=== PATIENT | male | born 1960 | race American Indian/Alaskan Native ===

== ENCOUNTER 2018-09-23 09:44 | Inpatient (IN) ==
[2018-09-15 12:45] LABS: Appearance,Urine CLEAR; Bilirubin,Urine NEG (NEG); Color,Urine YELLOW; Glucose,Urine (UA) NEGATIVE (NEG); Leukocyte Esterase,Urine NEG /uL (NEG); Protein,Urine NEG (NEG); Specific Gravity,Urine 1.017 (1.000-1.035); Urine Blood NEG mg/dL (<0.03); Urobilinogen,Urine NEG (NEG)
[2018-09-15 12:48] LABS: Basophils # (Auto) 0 K/mcL (0.0-0.3); Basophils % (Auto) 0.4 % (0.0-2.0); Eosinophils # (Auto) 0.1 K/mcL (0.0-0.7); Eosinophils % (Auto) 0.9 % (0.0-7.0); Granulocytes % (Auto) 71.9 % (38.0-78.0); Lymphocytes # (Auto) 1.5 K/mcL (1.5-4.8); Lymphocytes % (Auto) 18.2 % (15.5-49.0); Mean Cell Volume 97.8 fL (80.0-100.0); Mean Corpuscular HGB Conc 33.8 g/dL (31.0-36.0); Mean Corpuscular Hemoglobin 33.1 pg (26.0-34.0); Monocytes # (Auto) 0.7 K/mcL (0.1-0.9); Monocytes % (Auto) 8.6 % (1.0-12.0); Platelet Count 258 K/mcL (140-440); RBC 5.16 M/mcL (4.50-5.90); Red Cell Distribution Width 13.5 % (11.5-14.5)
[2018-09-15 13:04] LABS: Estimated Average Glucose(eAG) 117 mg/dL; Hemoglobin A1C 5.7 % HGB (4.0-6.0)
[2018-09-15 13:17] LABS: Blood Urea Nitrogen 11 mg/dl (6-20)
[~2018-09-23 09:44] MED LIST: CELECOXIB 200 MG CAPSULE PO SCH; PREGABALIN 75 MG CAPSULE PO SCH; ceFAZolin 1 GM VIAL IV SCH; oxyCODONE 10 MG TAB.ER.12H PO SCH
[2018-09-23] MEDS ORDERED: ONDANSETRON 4 MG/2 ML VIAL IV ONE (13:25)
[2018-09-23] MEDS ORDERED: GLYCOPYRROLATE 0.2 MG/ML VIAL IV ONE (13:25)
[2018-09-23] MEDS ORDERED: PHENYLEPHRINE 10 MG/ML VIAL IV ONE (13:25)
[2018-09-23] MEDS ORDERED: DEXAMETHASONE 10 MG/ML VIAL IV ONE (13:25)
[2018-09-23] MEDS ORDERED: LIDOCAINE HCL/PF 100 MG/5 ML SYRINGE IV ONE (13:25)
[2018-09-23] MEDS ORDERED: PROPOFOL 200 MG/20 ML VIAL IV ONE (13:25)
[2018-09-23] MEDS ORDERED: MIDAZOLAM 5 MG/5 ML VIAL IV ONE (13:25)
[2018-09-23] MEDS ORDERED: TRANEXAMIC ACID 1,000 MG/10 ML VIAL IV ONE (13:25)
[2018-09-23] MEDS ORDERED: KETAMINE 100 MG/ML ML IV ONE (13:25)
[2018-09-23] MEDS ORDERED: HEPARIN 20,000 UNIT/ML VIAL IR ONE (14:20)
[2018-09-23] MEDS ORDERED: BISACODYL 10 MG SUPP.RECT PR PRN (15:03)
[2018-09-23] MEDS ORDERED: FLEETS ADULT ENEMA PR PRN (15:03)
[2018-09-23] MEDS ORDERED: MAGNESIUM HYDROXIDE 30 ML ORAL.SUSP PO PRN (15:03)
[2018-09-23] MEDS ORDERED: POLYETHYLENE GLYCOL 3350 17 GM PACKET PO PRN (15:03)
[2018-09-23] MEDS ORDERED: KETOROLAC 30 MG/ML VIAL IV PRN ×2 (15:03→15:23)
[2018-09-23] MEDS ORDERED: BENZOCAINE/MENTHOL 1 LOZENGE PO PRN ×2 (15:03→15:23)
[2018-09-23] MEDS ORDERED: ONDANSETRON 4 MG/2 ML VIAL IV PRN ×2 (15:03→15:23)
[2018-09-23] MEDS ORDERED: TRANEXAMIC ACID 1,000 MG/10 ML VIAL IV SCH (15:03)
[2018-09-23] MEDS ORDERED: HYDROmorphone 2 MG/ML VIAL IV PRN ×2 (15:03→15:23)
--- NOTE | 2018-09-23 15:03 | Brief Operative Note ---
Date of procedure: 09/23/18 Pre-op diagnosis: Left hip severe DJD Post-op diagnosis: same Procedure: Left anterior total hip arthroplasty Grafts/Implants: Yes (Depuy Actis 6 HO stem, +1.5 36mm delta head, 56 cup, neutral altrx liner) Anesthesia: spinal, GLMA Findings: arthritis Complications: none Surgeon: Jared Ramos Lump Machine Operator: Alexander Valdes Estimated blood loss (cc): 500 Specimens Removed/Pathology: none sent Condition: stable Disposition: PACU
[2018-09-23] MEDS ORDERED: LACTATED RINGERS 250 ML IV PRN (15:23)
[2018-09-23] MEDS ORDERED: fentaNYL 100 MCG/2 ML VIAL IV PRN (15:23)
[2018-09-23] MEDS ORDERED: FLUMAZENIL 0.1 MG/ML ML IV PRN (15:23)
[2018-09-23] MEDS ORDERED: ACETAMINOPHEN 1,000 MG/100 ML BOTTLE IV ONE (15:23)
[2018-09-23] MEDS ORDERED: NALOXONE HCL 0.4 MG/ML VIAL IV PRN (15:23)
[2018-09-23] MEDS ORDERED: METHOCARBAMOL 1,000 MG/10 ML VIAL IV PRN (15:23)
[2018-09-23] MEDS ORDERED: IPRATROPIUM/ALBUTEROL 3 ML AMPUL.NEB NEB PRN (15:23)
[2018-09-23] MEDS ORDERED: MEPERIDINE 25 MG/ML SYRINGE IV PRN (15:23)
[2018-09-23] MEDS ORDERED: LACTATED RINGERS 1,000 ML IV SCH (15:30)
--- NOTE | 2018-09-23 17:59 | XRay Report ---
CLINICAL INFORMATION: INTRA OP LEFT TOTAL HIP ARTHROPLASTY COMPARISON: None. FINDINGS: Digital images from the OR are submitted. Final images shows left total hip prostheses in anatomic position. No osseous abnormality. Soft tissue swelling seen as expected IMPRESSION: Negative Interpreted and Authenticated by: Dayne Marques 09/23/18
--- NOTE | 2018-09-23 19:31 | XRay Report ---
CLINICAL INFORMATION: post-op [facility]Z COMPARISON: None. FINDINGS: A total hip prosthesis is in near-anatomic alignment. No osseous normality. Soft tissues are within the surgical site. IMPRESSION: Negative Interpreted and Authenticated by: Dayne Marques 09/23/18
[2018-09-23] MEDS: 0.9 % SODIUM CHLORIDE 1,000 ML IV SCH (20:42)
[2018-09-23] MEDS ORDERED: ATORVASTATIN 20 MG TABLET PO SCH (21:00)
[2018-09-23] MEDS ORDERED: SENNOSIDES 1 TABLET PO SCH (21:00)
[2018-09-23] MEDS: ceFAZolin 1 GM VIAL IV SCH (21:02)
[2018-09-23] MEDS: DOCUSATE SODIUM 100 MG CAPSULE PO SCH (21:03)
[2018-09-23] MEDS: ASPIRIN 325 MG ENTERIC COATED TABLET PO SCH (21:03)
[2018-09-23] MEDS: 0.9 % SODIUM CHLORIDE 10 ML SYRINGE IV SCH (21:04)
[2018-09-23] MEDS: HYDROcodone/APAP 10/325MG TABLET PO PRN (21:04)
[2018-09-24] MEDS: HYDROcodone/APAP 10/325MG TABLET PO PRN ×3 (01:58→10:43)
[2018-09-24] MEDS: ceFAZolin 1 GM VIAL IV SCH (04:39)
[2018-09-24] MEDS: 0.9 % SODIUM CHLORIDE 1,000 ML IV SCH ×2 (04:42→08:21)
[2018-09-24] MEDS: 0.9 % SODIUM CHLORIDE 10 ML SYRINGE IV SCH (04:42)
--- NOTE | 2018-09-24 08:14 | Discharge Summary ---
Providers - Providers Patient information: Note initiated : 09/24/18 at 8:12 am Service Date, if different from initiated Date: [] Patient: Iain Gallegos 58 y/o M admitted on 09/23/18 for Left Total Hip Arthroplasty. Chief Complaint: [] Discharge date: 09/24/18 Hospitalization Hospital course: Pt was admitted for a R [facility]ZEGORZ. Pt underwent the procedure on the day of admission. Pt spent one night on the floor prior to discharge for IV pain meds, IV abx, and PT. Pt will attend out-pt PT and f/u at [facility] in 2 weeks. Discharge diagnosis: L hip OA Exam - Exam Clean and dry: Yes Weight bearing status: as tolerated Ortho Discharge - [facility] - Patient Instructions Diet: Regular Diet Activity: activity as tolerated Total Hip Protocol: Follow activity instructions as provided by Physical Therapy. Dressing Care: May shower in 2 days Patient Education: Minimally Invasive Total Hip Replacement (DC) Additional Instructions: Discharge Instructions: Do the exercises at home that physical therapy gave you throughout the day. Weight bearing as tolerated. Wear comfortable clothing for physical therapy. You are scheduled to start physical therapy at [facility] ) on Take your prescription, photo ID, insurance cards, and current medication list with you to your first physical therapy appointment. Take your prescription to pear picker any medication or equipment (such as walker, crutches, toilet riser or C.P.M.) You have the Aquacel Ag dressing, leave in place for 7 days then remove. If dressing becomes soiled (turns black), remove and use gauze 4x4 dressing and silvasorb ointment and change daily. Keep incision clean and dry. You can get the Silvasorb gel and 4x4 dressings at [facility], if needed. You may start showering on post op day #2. To avoid constipation while taking any narcotic pain medication, take an over the counter stool softener/laxative. Use ice packs as directed, on for 20 minutes at a time throughout the day. This and elevation will help with pain and swelling. Call your physician for fevers above 100.5 or pain not controlled by medication. Your prescriptions are with your discharge information. Some medications were electronically transmitted to your pharmacy of choice. Take Aspirin twice daily, for 30 days, as prescribed to prevent blood clots ( see medication list). - Follow Up Plan Follow Up Appointments: Jared Ramos MD [Physician] - 10/08/18 11:20 am Disposition: Home, Self-Care Prognosis: Good Rehab Potential: Good Overall status at discharge: patient is progressing back to baseline - Orders For Discharge Prescriptions: Aspirin [Ecotrin] 325 mg PO BID #60 tab.ec HYDROcodone/APAP 10/325MG [Success 10-325Mg] 1 - 2 tab PO Q4HP PRN #60 tab PRN Reason: Pain Level 3-6 Pending Studies Resuscitation Status Full Code Diet Regular Diet Start FriSep 23 1504 Hydrocodone Bitart/Acetaminophen (Success 10/325mg) 0 tab PO Q4HP PRN PRN Reason: PAIN LEVEL 3-6 Last Admin: 09/24/18 06:06 Dose: 2 tab Admin: 09/24/18 01:58 Dose: 2 tab Admin: 09/23/18 21:04 Dose: 2 tab Aspirin (Ecotrin) 325 mg PO BID [facility] Last Admin: 09/23/18 21:03 Dose: 325 mg Atorvastatin Calcium (Lipitor) 20 mg PO HS [facility] Last Admin: 09/23/18 21:03 Dose: 20 mg Docusate Sodium (Colace) 100 mg PO BID [facility] Last Admin: 09/23/18 21:03 Dose: 100 mg Hydromorphone HCl (Dilaudid) 0 mg IV Q2HP PRN PRN Reason: PAIN LEVEL > 6 Last Admin: 09/23/18 22:39 Dose: 0.5 mg Sodium Chloride (Sodium Chloride 0.9%) 1,000 mls @ 125 mls/hr IV .Q8H [facility] Last Admin: 09/24/18 04:42 Dose: Infusion: 09/24/18 04:42 Dose: 0 mls/hr Admin: 09/23/18 20:42 Dose: 125 mls/hr Ondansetron HCl (Zofran) 4 mg IV Q4HP PRN PRN Reason: Nausea And Vomiting Last Admin: 09/23/18 17:56 Dose: 4 mg Senna (Senokot) 2 tab PO HS [facility] Last Admin: 09/23/18 21:03 Dose: 2 tab Sodium Chloride (Saline Flush) 10 ml IV Q8 [facility] Last Admin: 09/24/18 04:42 Dose: 10 ml Admin: 09/23/18 21:04 Dose: Not Given Shift Summary 09/24/18 05:05 Shift Summary by Jaimie De La Vega&Julia4. VSS on RA. Up with FWW. IV to left hand is saline locked. Denied N/V this shift. Dressing to surgical site to left hip is CDI. Administered 2 tablets Success 10/325mg x2 and Dilaudid 0.5mg IV x1 for hip pain. Voiding adequate amounts; last PVR was 114ml. Will update at bedside. Initialized on 09/24/18 05:05 - END OF NOTE
[2018-09-24] MEDS: DOCUSATE SODIUM 100 MG CAPSULE PO SCH (08:26)
[2018-09-24] MEDS: ASPIRIN 325 MG ENTERIC COATED TABLET PO SCH (08:26)
[2018-09-24] MEDS ORDERED: ERGOCALCIFEROL (VITAMIN D2) 50,000 UNIT CAPSULE PO SCH (09:00)
--- NOTE | 2018-09-24 09:44 | Operative Note ---
DATE OF OPERATION: 09/23/2018 PREOPERATIVE DIAGNOSIS: Left hip severe osteoarthritis. POSTOPERATIVE DIAGNOSIS: Left hip severe osteoarthritis. PROCEDURE PERFORMED: Left anterior total hip arthroplasty placing a DePuy Actis size 6 high offset femoral stem, a +1.5, 36 mm delta ceramic head ball, a 56 cup with a neutral AltrX liner. SURGEON: Jared Ramos MD DIRECTOR CUSTOM: Elijah Valdes PA-C. ANESTHESIA: Spinal plus general. DRAINS: None. SPECIMENS: Femoral head which was discarded. BLOOD LOSS: 500 mL COMPLICATIONS: None. POSTOPERATIVE CONDITION: Stable. INDICATIONS FOR SURGERY: This is a 58-year-old male who has had longstanding progressive worsening left hip pain. Radiographs showed [id number] osteoarthritis. FINDINGS AT SURGERY: As above. Post implantation showed good mu-ism of leg length and offset. It was a satisfactory component position. PROCEDURE IN DETAIL: The patient had been seen preoperatively. Informed consent had been obtained after discussion of risks, benefits of surgery. Risks including, but not limited to, bleeding, possibly requiring transfusion; infection, possibly requiring implant removal and prolonged IV antibiotics; injury to nerves, blood vessels other surrounding structures; anesthetic risks; incomplete or no resolution of symptoms; leg length discrepancy; dislocation; fracture; DVT and pulmonary embolus risks; and the possibility of needing further revision surgery. He understood these risks and wished to proceed. Correct operative site was marked. The patient was taken to the operating room. General anesthesia was induced after spinal had been given in preop holding. He was carefully positioned on the fracture table and then the left hip and groin were carefully prepped and draped in normal sterile fashion and a timeout was performed verifying patient name, operative site, and plan. Ioban was used to cover all skin surfaces and a standard anterior approach incision was made with a scalpel through skin and subcutaneous tissue. Hemostasis was obtained with Bovie cautery. Blunt dissection was taken down onto the tensor fascia and this was undermined circumferentially. IrriSept was irrigated and then a ring retractor was placed. Tensor fascia was incised in line with the muscle fibers and then careful blunt dissection was taken medial to the muscle belly. We then placed blunt cobras on the superior and inferior neck and then anterior capsulectomy was performed and capsule release was taken out towards the trochanter. Circumflex vessels had been coagulated and cut. A corkscrew was placed in the femoral head and then osteotome used under fluoro to identify our neck cut trajectory. Oscillating saw was used to make our neck cut and the femoral head was removed. Acetabulum was exposed and labrum was excised circumferentially as well as fairly significant amount of inflamed synovial tissue from the floor of the acetabulum. We then used the reamer starting initially to directly medialize and then increasing reamer size and angle until a 55 reamer got some rim ream. We opened up a 56 3-hole [place] cup. We irrigated the acetabulum with IrriSept. After a minute we pulse lavaged copiously with saline. We then impacted the cap using [id number] at about 40 degrees of inclination and 25 degrees of anteversion. We did have some initial trouble getting pressfit. We had to remove the cup and clean some more soft tissue out and then medialized a little bit more with the reamer before we reattempted and were able to get pressfit, but due to our challenges we felt the screw would be indicated. We drilled a 30 mm drill in the posterior superior quadrant and then placed a 30 mm screw. This got extremely good cortical purchase. We then placed a center hole cover and a neutral AltrX liner was carefully aligned and impacted. We then released traction from the leg. It was externally rotated. We released capsule around the medial and posterior neck down to the lesser trochanter. The leg was then extended and adducted. We released capsule out to the greater trochanter. Once we had adequate proximal femur exposure, we used a box osteotome to gain canal entry and then awl to identify trajectory. Rongeur and rasp were used to lateralize. We then started broaching with the [id number] up to a size 6. This seated just above our neck cut. We went ahead and trialled a high offset neck with a +1.5 head ball. The hip was reduced without excessive tension. AP pelvis was taken to verify neutral rotation and then we took x-rays of the nonoperative and operative hips and overlaid them and it appeared that our leg lengths were close, so we went ahead redislocated, removed the trial implant. The definitive implants were opened. We irrigated the femoral canal with IrriSept, after a minute pulse lavaged with saline and then impacted the 6 stem with the [id number]. It did actually seat on her neck, so we opened a +1.5 head ball. The stem was carefully cleaned and dried and the head ball briskly impacted with multiple blows of the mallet. We then reduced the hip again without difficulty. Final fluoro images were taken and saved. We irrigated the joint with IrriSept, after a minute we pulsed with saline. #1 Vicryl was used to close tensor fascia with two running stitches and then a ring retractor was removed and IrriSept irrigated again and after a minute pulse lavage and fat was tacked to fascia with Vicryl and 2-0 Monocryl was used for subcutaneous and moriah for skin. Xeroform sterile dressing was applied. The patient was then awakened and transferred to [facility] and to the recovery room in stable condition. BJB:felipe Job ID: [id number] Doc ID: [id number] Jared Ramos MD
== END 2018-09-24 13:05 | disposition home or self-care (01) | DRG 470 ==
LOC: MEDSUR 09:44
PROVIDERS: ADMIT Orthopaedic Surgery; ATTEND Orthopaedic Surgery
CPT/HCPCS: 62322; 73502; 97161; A6248; C1713; C1776; J0131; J0690; J1100; J1170; J1644; J2001; J2250; J2370; J2405; J7030; J7120